=== PATIENT | male | born 1990 | race American Indian/Alaskan Native ===

== ENCOUNTER 2017-09-17 12:33 | Emergency (ER) | payer SELFPAY ==
[2017-09-17 13:12] VITALS: BP 128/77
[2017-09-17] MEDS ORDERED: ZITHROMAX PO ONE (16:20)
[2017-09-17] MEDS ORDERED: FLAGYL PO ONE (16:20)
[2017-09-17] MEDS ORDERED: XYLOCAINE 1% MPF 5 mL INFILTRATI ONE (16:20)
[2017-09-17] MEDS ORDERED: ROCEPHIN IM ONE (16:20)
--- NOTE | 2017-09-17 16:20 | Emergency Department Report ---
HPI - General Chief Complaint: Medical Clearance Time Seen by Provider: 09/17/17 15:27 - HPI HPI: 26-year-old male presents to ED stating that he found out recently that his girlfriend got tested and was positive for STD. Patient states that they have had intercourse since then he has not been treated. He denies dysuria, fever, penile discharge, penile pain, lesions, scrotum swelling or pain. ED Past Medical Hx - Past Medical History Previous Medical History?: No ED Review of Systems ROS: Stated complaint: TESTICLE PAIN Other details as noted in HPI Constitutional: denies: chills, fever Eyes: denies: eye pain, eye discharge, vision change ENT: denies: ear pain, throat pain Respiratory: denies: cough, shortness of breath, wheezing Cardiovascular: denies: chest pain, palpitations Endocrine: no symptoms reported Gastrointestinal: denies: abdominal pain, nausea, vomiting, diarrhea Genitourinary: denies: urgency, dysuria, frequency, hematuria, discharge, testicular pain, testicular mass Musculoskeletal: denies: back pain, joint swelling, arthralgia Skin: denies: rash, lesions Neurological: denies: headache, weakness, paresthesias Psychiatric: denies: anxiety, depression Hematological/Lymphatic: denies: easy bleeding, easy bruising Physical Exam - Physical Exam Vital Signs: Vital Signs 09/17/17 13:09 Temperature 98.5 F Pulse Rate 54 L Respiratory 18 Rate Blood Pressure 128/77 O2 Sat by Pulse 100 Oximetry Physical Exam: GENERAL: Alert and oriented x3, no apparent distress, Normal Gait, atraumatic. HEAD: Head is normocephalic and a-traumatic. LUNGS: Symetrical with respiration, No wheezing, no rales or crackles, CTAB. HEART: S1, S2 present, regular rate and rhythm without murmur, no rubs, no gallops. Non tender to palpation ABDOMEN: No organomegaly was noted,Positive bowel sounds, soft, and non- distended. . Nontender to palpation on all Quadrants, NO CVA tenderness. BACK: Full range of motion, no spinal tenderness, nontender to palpation. UROGENITAL: No scrotal mass, Scrotum non tender to palpation bilaterally, no hernia, no scars or penile discharge. SKIN: Warm and dry, No lesions, No ulceration or induration present. ED Course Vital Signs 09/17/17 13:09 Temperature 98.5 F Pulse Rate 54 L Respiratory 18 Rate Blood Pressure 128/77 O2 Sat by Pulse 100 Oximetry ED Medical Decision Making - Medical Decision Making 26-year-old male presents with STD exposure. ED course: urinalysis and gonorrhea and Chlamydia cultures obtained. Urinalysis negative Patient received 250 mg of Rocephin, azithromycin 1 g, Flagyl 2 g. Discussed with patient possible STD due to exposure. Discussed with patient findings and treatment Discussed prophylaxis treatment patient is to abstain from sex 7-10 days as treatment. Discussed patient partner knowledge and treatment. Discussed the follow-up with the health department for further STD testing. Patient's alert and oriented times 3. Vital signs are normal patient is in no acute discharge. Patient will be discharged home with instructions. Critical care attestation.: If time is entered above; I have spent that time in minutes in the direct care of this critically ill patient, excluding procedure time. ED Disposition Clinical Impression: Exposure to STD Disposition: DC-01 TO HOME OR SELFCARE Is pt being admited?: No Does the pt Need Aspirin: No Condition: Stable Instructions: Sexually Transmitted Diseases (ED), Safe Sex (ED) Additional Instructions: Make sure to follow up with the primary care physician as discussed. Take all your medications as you've been prescribed. If you have any worsening symptoms or develop new symptoms please return to ED immediately. Referrals: PRIMARY CARE, [Primary Care Provider] - 3-5 Days [facility] [Outside] - 3-5 Days [facility] [facility] [Outside] - 3-5 Days [facility] [Outside] - 3-5 Days Forms: Work/School Release Form(ED)
[2017-09-17 16:32] LABS: Bilirubin,Urine NEG (Negative); Blood,Urine NEG (Negative); Color,Urine Yellow (Yellow); Protein,Urine <15 mg/dL mg/dL (Negative); Urobilinogen,Urine < 2.0 mg/dL (<2.0); WBC,Urine < 1.0 /HPF (0.0-6.0)
== END 2017-09-17 16:53 | disposition home or self-care (01) ==
LOC: ED 12:33
DX: Z20.2 Contact with and (suspected) exposure to infections with a predominantly sexual mode of transmission (principal)
CPT/HCPCS: 81001; 87591; 96372; 99283; J0696

== ENCOUNTER 2021-12-21 12:11 | Emergency (ER) | payer SELFPAY ==
[2021-12-21] MEDS ORDERED: MORPHINE 4 MG/1 ML INJ IV ONE (12:40)
[2021-12-21] MEDS ORDERED: TETANUS,DIPH,PERTUSS(ACELL) VACCINE 0.5 ML SYRINGE IM ONE (12:40)
[2021-12-21] MEDS ORDERED: ONDANSETRON 4 MG/2 ML INJ IV ONE (12:40)
--- NOTE | 2021-12-21 12:57 | Emergency Department Report ---
<VANESSA DUMONT - Last Filed: 12/22/21 00:08> ED Animal Bite HPI - General Chief Complaint: Animal Bite Stated Complaint: SNAKE BITE Time Seen by Provider: 12/21/21 12:20 - Related Data Allergies Allergy/AdvReac Type Severity Reaction Status Date / Time No Known Allergies Allergy Verified 12/21/21 12:27 ED Disposition Clinical Impression: Snake bite Disposition: 01 HOME / SELF CARE / HOMELESS Condition: Stable Referrals: LINCOLN ORTEGA MD [Primary Care Provider] - 3-5 Days Forms: Work/School Release Form(ED) ED Medical Decision Making - Lab Data Result diagrams: 12/21/21 20:25 12/21/21 Unknown - Medical Decision Making pt was assessed at 11 pm swelling has increased slightly , spoke with poison control, asked to repat blood work and wait to go to elbow , pt started getting assaultive and cussing and racist asking for anti venom then started going off on me and staff with racist and threatening phrases he was escorted out with security pt cooninued to be aggressive and assaultive and called me ( niger ) and I will fuck you if i see u police has been called and escorted out of the premises <MARBELLA MENDOZA - Last Filed: 12/23/21 21:42> ED Animal Bite HPI - General Source: patient Mode of arrival: Ambulatory Limitations: No Limitations - History of Present Illness Initial Comments: 31-year-old male with a past medical history of asthma presents to the hospital after sustaining a snake back to his left thumb approximately 12 PM. Patient killed the snake after bite, looked it up on the Internet, and states it is likely a baby copperhead snake. Patient came to the ER immediately after bite. He is right-hand dominant. He complains of pain to his left thumb the area of bite with numbness extending proximally towards the wrist. Patient denies shortness of breath or other symptoms at this time. Pain is rated 6/10 in intensity and worse with movement and palpation. Tetanus status not up-to-date ED Review of Systems ROS: Stated complaint: SNAKE BITE Other details as noted in HPI Comment: All other systems reviewed and negative ED Physical Exam - General Limitations: No Limitations - Other Other exam information: General: No acute distress Head: Atraumatic Eyes: normal appearance ENT: Moist mucous membranes Neck: Normal appearance, no midline tenderness Chest: Clear to auscultation bilaterally CV: Regular rate and rhythm Abdomen: Soft, normal bowel sounds, nontender, nondistended, no rebound or guarding Back: Normal inspection Extremity: Mild swelling noted to left thumb and adjacent posterior hand extending towards the wrist. Patient has 2 puncture wounds noted around the thumb PIP and and just distal to the MTP joint. There is a measurable area of s welling and numbness is 7 cm when measured from the distal puncture wound extending proximately towards the wrist. This was outlined with a skin marker. At this time swelling and numbness has not extended past the wrist joint. Patient is able to flex and extend thumb although somewhat limited secondary to swelling. Distal sensation intact. Neuro: Alert O x 3, no facial asymmetry, speech clear, no gross motor sensory deficit Psych: Appropriate behavior Skin: No rash ED Course Vital Signs 12/21/21 12/21/21 12/21/21 12:26 12:36 12:42 Temperature 98.6 F Pulse Rate 68 71 Respiratory 12 Rate Blood Pressure Blood Pressure 135/90 [Left] O2 Sat by Pulse 97 100 Oximetry 12/21/21 12/21/21 12/21/21 13:00 13:30 14:16 Temperature Pulse Rate 63 57 L 62 Respiratory 10 L 13 12 Rate Blood Pressure 121/79 133/83 118/76 Blood Pressure [Left] O2 Sat by Pulse 100 100 99 Oximetry 12/21/21 12/21/21 12/21/21 15:00 15:05 16:45 Temperature Pulse Rate 63 71 Respiratory 10 L 12 Rate Blood Pressure 131/77 131/81 Blood Pressure [Left] O2 Sat by Pulse 100 100 100 Oximetry 12/21/21 12/21/21 12/21/21 17:01 18:31 18:45 Temperature Pulse Rate 70 66 68 Respiratory 13 16 10 L Rate Blood Pressure 126/85 116/75 116/75 Blood Pressure [Left] O2 Sat by Pulse 99 100 Oximetry 12/21/21 12/21/21 12/21/21 19:01 19:15 19:31 Temperature Pulse Rate 72 63 64 Respiratory 11 L 11 L 11 L Rate Blood Pressure 116/75 116/75 116/75 Blood Pressure [Left] O2 Sat by Pulse 100 100 99 Oximetry 12/21/21 12/21/21 12/21/21 19:45 20:01 20:15 Temperature Pulse Rate 56 L 58 L 60 Respiratory 13 10 L 15 Rate Blood Pressure 116/75 120/77 120/77 Blood Pressure [Left] O2 Sat by Pulse 100 100 97 Oximetry 12/21/21 12/21/21 12/21/21 20:31 20:45 21:00 Temperature Pulse Rate 65 70 72 Respiratory 9 L 18 9 L Rate Blood Pressure 120/77 120/77 127/87 Blood Pressure [Left] O2 Sat by Pulse 99 100 99 Oximetry 12/21/21 12/21/21 12/21/21 21:21 21:31 21:45 Temperature Pulse Rate 72 63 Respiratory 13 12 Rate Blood Pressure 127/87 127/87 127/87 Blood Pressure [Left] O2 Sat by Pulse 98 100 100 Oximetry 12/21/21 12/21/21 12/21/21 22:01 22:15 22:31 Temperature Pulse Rate 77 75 64 Respiratory 12 16 14 Rate Blood Pressure 127/87 127/87 127/87 Blood Pressure [Left] O2 Sat by Pulse 100 98 97 Oximetry 12/21/21 12/21/21 22:45 23:01 Temperature Pulse Rate 78 72 Respiratory 11 L 17 Rate Blood Pressure 127/87 131/90 Blood Pressure [Left] O2 Sat by Pulse 97 97 Oximetry - Reevaluation(s) Reevaluation #1: 12/21/21 15:57 Patient now has more diffuse swelling to hands with extension of swollen proximal to the wrist/distal forearm. Patient is still able to flex and extend fingers including thumb. we will continue to monitor. 12/21/21 19:03 currently 22 cm le - Consultations Consultation #1: 12/21/21 12: 43 Case discussed with [facility]. She states that copperhead's are not typically associated with coagulopathy which will be an indication for antivenom. Recommends that patient is observed for least 8 hours and observed for extension of area of swelling. Indications for antivenom include unstable vital signs, rapid progression of swelling, and swelling past to major joints which would be the wrist and elbow in this case. Recommend call back for further instruction if swelling extends towards the mid forearm. Recommend to keep limb elevated at the level or above the heart. Does not recommend ice or tourniquet. Recommend baseline labs which have been ordered 12/21/21 19:05 case we discussed with [facility] with poison recommend to watch for 12 hours (not 8 hours). if it pass mid forearm then they will consider the antidote. Does not recommend antidote at this time. Critical Care Time: No Critical care attestation.: If time is entered above; I have spent that time in minutes in the direct care of this critically ill patient, excluding procedure time. ED Disposition Is pt being admited?: No ED Medical Decision Making - Lab Data Result diagrams: 12/21/21 20:25 12/21/21 Unknown Lab Results 12/21/21 12/21/21 12/21/21 Range/Units 10:45 10:45 20:25 WBC 5.1 7.1 (4.5-11.0) K/mm3 RBC 4.36 4.05 (3.65-5.03) M/mm3 Hgb 15.0 13.8 (11.8-15.2) gm/dl Hct 44.6 41.3 (35.5-45.6) % MCV 102 H 102 H (84-94) fl MCH 34 H 34 H (28-32) pg MCHC 34 34 (32-34) % RDW 13.0 L 13.2 (13.2-15.2) % Plt Count 241 217 (140-440) K/mm3 Lymph % (Auto) 33.7 (13.4-35.0) % [place] % (Auto) 7.9 H (0.0-7.3) % Eos % (Auto) 2.0 (0.0-4.3) % Baso % (Auto) 0.5 (0.0-1.8) % Lymph # (Auto) 2.4 (1.2-5.4) K/mm3 [place] # (Auto) 0.6 (0.0-0.8) K/mm3 Eos # (Auto) 0.1 (0.0-0.4) K/mm3 Baso # (Auto) 0.0 (0.0-0.1) K/mm3 Add Manual Diff Complete Total Counted 100 Seg Neutrophils % Windows Security Engineer 55.9 Seg Neuts % (Manual) 39.0 L (40.0-70.0) % Band Neutrophils % 0 % Lymphocytes % (Manual) 49.0 H (13.4-35.0) % Reactive Lymphs % (Man) 0 % Monocytes % (Manual) 9.0 H (0.0-7.3) % Eosinophils % (Manual) 3.0 (0.0-4.3) % Basophils % (Manual) 0 (0.0-1.8) % Metamyelocytes % 0 % Myelocytes % 0 % Promyelocytes % 0 % Blast Cells % 0 % Nucleated RBC % Not Reportable Seg Neutrophils # 3.9 (1.8-7.7) K/mm3 Seg Neutrophils # Man 2.0 (1.8-7.7) K/mm3 Band Neutrophils # 0.0 K/mm3 Lymphocytes # (Manual) 2.5 (1.2-5.4) K/mm3 Abs React Lymphs (Man) 0.0 K/mm3 Monocytes # (Manual) 0.5 (0.0-0.8) K/mm3 Eosinophils # (Manual) 0.2 (0.0-0.4) K/mm3 Basophils # (Manual) 0.0 (0.0-0.1) K/mm3 Metamyelocytes # 0.0 K/mm3 Myelocytes # 0.0 K/mm3 Promyelocytes # 0.0 K/mm3 Blast Cells # 0.0 K/mm3 WBC Morphology Not Reportable Hypersegmented Neuts Not Reportable Hyposegmented Neuts Not Reportable Hypogranular Neuts Not Reportable Smudge Cells Few Toxic Granulation Not Reportable Toxic Vacuolation Not Reportable Dohle Bodies Not Reportable Pelger-Huet Anomaly Not Reportable Alverto Rods Not Reportable Platelet Estimate Consistent w auto Clumped Platelets Not Reportable Plt Clumps, EDTA Not Reportable Large Platelets Not Reportable Giant Platelets Not Reportable Platelet Satelliting Not Reportable Plt Morphology Comment Not Reportable RBC Morphology Not Reportable Dimorphic RBCs Not Reportable Polychromasia Not Reportable Hypochromasia Not Reportable Poikilocytosis Not Reportable Anisocytosis 1+ Microcytosis Not Reportable Macrocytosis Not Reportable Spherocytes Not Reportable Pappenheimer Bodies Not Reportable Sickle Cells Not Reportable Target Cells Not Reportable Tear Drop Cells Not Reportable Ovalocytes Not Reportable Helmet Cells Not Reportable Rain-[place]acy[place] Bodies Not Reportable Hobson Rings Not Reportable [place] Cells Not Reportable Bite Cells Not Reportable Crenated Cell Not Reportable Elliptocytes Not Reportable Acanthocytes (Spur) Not Reportable Rouleaux Not Reportable Hemoglobin C Crystals Not Reportable Schistocytes Not Reportable Malaria parasites Not Reportable [place] Bodies Not Reportable Hem Pathologist Commnt No PT 13.3 (12.2-14.9) Sec. INR 0.89 (0.87-1.13) APTT 33.7 (24.2-36.6) Sec. Fibrinogen 293 (211-480) mg/dl Sodium (137-145) mmol/L Potassium (3.6-5.0) mmol/L Chloride (98-107) mmol/L Carbon Dioxide (22-30) mmol/L Anion Gap mmol/L BUN (9-20) mg/dL Creatinine (0.8-1.3) mg/dL Estimated GFR ml/min BUN/Creatinine Ratio % Glucose (75-100) mg/dL Calcium (8.4-10.2) mg/dL Total Bilirubin (0.1-1.2) mg/dL AST (5-40) units/L ALT (7-56) units/L Alkaline Phosphatase (35-129) units/L Total Creatine Kinase (55-170) units/L Total Protein (6.3-8.2) g/dL Albumin (3.9-5) g/dL Albumin/Globulin Ratio % // Range/Units Unknown WBC (4.5-11.0) K/mm3 RBC (3.65-5.03) M/mm3 Hgb (11.8-15.2) gm/dl Hct (35.5-45.6) % MCV (84-94) fl MCH (28-32) pg MCHC (32-34) % RDW (13.2-15.2) % Plt Count (140-440) K/mm3 Lymph % (Auto) (13.4-35.0) % [place] % (Auto) (0.0-7.3) % Eos % (Auto) (0.0-4.3) % Baso % (Auto) (0.0-1.8) % Lymph # (Auto) (1.2-5.4) K/mm3 [place] # (Auto) (0.0-0.8) K/mm3 Eos # (Auto) (0.0-0.4) K/mm3 Baso # (Auto) (0.0-0.1) K/mm3 Add Manual Diff Total Counted Seg Neutrophils % Seg Neuts % (Manual) (40.0-70.0) % Band Neutrophils % % Lymphocytes % (Manual) (13.4-35.0) % Reactive Lymphs % (Man) % Monocytes % (Manual) (0.0-7.3) % Eosinophils % (Manual) (0.0-4.3) % Basophils % (Manual) (0.0-1.8) % Metamyelocytes % % Myelocytes % % Promyelocytes % % Blast Cells % % Nucleated RBC % Seg Neutrophils # (1.8-7.7) K/mm3 Seg Neutrophils # Man (1.8-7.7) K/mm3 Band Neutrophils # K/mm3 Lymphocytes # (Manual) (1.2-5.4) K/mm3 Abs React Lymphs (Man) K/mm3 Monocytes # (Manual) (0.0-0.8) K/mm3 Eosinophils # (Manual) (0.0-0.4) K/mm3 Basophils # (Manual) (0.0-0.1) K/mm3 Metamyelocytes # K/mm3 Myelocytes # K/mm3 Promyelocytes # K/mm3 Blast Cells # K/mm3 WBC Morphology Hypersegmented Neuts Hyposegmented Neuts Hypogranular Neuts Smudge Cells Toxic Granulation Toxic Vacuolation Dohle Bodies Pelger-Huet Anomaly Alverto Rods Platelet Estimate Clumped Platelets Plt Clumps, EDTA Large Platelets Giant Platelets Platelet Satelliting Plt Morphology Comment RBC Morphology Dimorphic RBCs Polychromasia Hypochromasia Poikilocytosis Anisocytosis Microcytosis Macrocytosis Spherocytes Pappenheimer Bodies Sickle Cells Target Cells Tear Drop Cells Ovalocytes Helmet Cells Rain-[place]acy[place] Bodies Hobson Rings [place] Cells Bite Cells Crenated Cell Elliptocytes Acanthocytes (Spur) Rouleaux Hemoglobin C Crystals Schistocytes Malaria parasites [place] Bodies Hem Pathologist Commnt PT (12.2-14.9) Sec. INR (0.87-1.13) APTT (24.2-36.6) Sec. Fibrinogen (211-480) mg/dl Sodium 141 (137-145) mmol/L Potassium 4.3 (3.6-5.0) mmol/L Chloride 103.1 (98-107) mmol/L Carbon Dioxide 29 (22-30) mmol/L Anion Gap 13 mmol/L BUN 12 (9-20) mg/dL Creatinine 1.5 H (0.8-1.3) mg/dL Estimated GFR > 60 ml/min BUN/Creatinine Ratio 8 % Glucose 73 L (75-100) mg/dL Calcium 10.5 H (8.4-10.2) mg/dL Total Bilirubin 0.60 (0.1-1.2) mg/dL AST 18 (5-40) units/L ALT 13 (7-56) units/L Alkaline Phosphatase 58 (35-129) units/L Total Creatine Kinase 305 H (55-170) units/L Total Protein 7.6 (6.3-8.2) g/dL Albumin 5.0 (3.9-5) g/dL Albumin/Globulin Ratio 1.9 % - Medical Decision Making 31-year-old male status post snakebite. Patient in the ED receiving vital sign monitoring, laboratory evaluation, reevaluation of swelling patient will need at least 12 hours observation to determine if intervention is indicated. At time of signout repeat labs are pending. Case signed out to Dr. Dumont who examined patient at the bedside with myself at time of signout. He will follow-up and dispo patient.
[2021-12-21 13:26] LABS: Hematocrit 44.6 % (35.5-45.6); Mean Corpuscular HGB Conc 34 % (32-34); Mean Corpuscular Volume 102 fl (84-94); Platelet Count 241 K/mm3 (140-440); Red Blood Count 4.36 M/mm3 (3.65-5.03)
[2021-12-21] MEDS ORDERED: fentaNYL 100 MCG/2 ML INJ IV ONE ×2 (13:26→15:58)
[2021-12-21 13:35] LABS: INR 0.89 (0.87-1.13)
[2021-12-21 13:36] LABS: Partial Thromboplastin Time 33.7 Sec. (24.2-36.6)
[2021-12-21 13:57] LABS: Alanine Aminotransferase 13 units/L (7-56); BUN/Creatinine Ratio 8; Blood Urea Nitrogen 12 mg/dL (9-20); Calcium 10.5 mg/dL (8.4-10.2); Hemolysis Index 15
[2021-12-21 13:59] LABS: Basophils % (Manual) 0 % (0.0-1.8); Total Cells Counted 100
[2021-12-21 14:00] LABS: Anisocytosis 1+; Platelet Estimate Consistent w Auto; Smudge Cells Few
[2021-12-21] MEDS ORDERED: SODIUM CHLORIDE 0.9% 1000 ML 1,000 ML IV ONE (14:30)
[2021-12-21] MEDS ORDERED: HYDROmorphone 1 MG/1 ML INJ IV ONE ×2 (18:54→21:53)
[2021-12-21 21:00] LABS: Basophils % (Auto) 0.5 % (0.0-1.8); Eosinophils # (Auto) 0.1 K/mm3 (0.0-0.4); Hematocrit 41.3 % (35.5-45.6); Hemoglobin 13.8 gm/dl (11.8-15.2); Lymphocytes # (Auto) 2.4 K/mm3 (1.2-5.4); Lymphocytes % (Auto) 33.7 % (13.4-35.0); Mean Corpuscular HGB Conc 34 % (32-34); Mean Corpuscular Volume 102 fl (84-94); Monocytes # (Auto) 0.6 K/mm3 (0.0-0.8); Monocytes % (Auto) 7.9 % (0.0-7.3); Platelet Count 217 K/mm3 (140-440); Red Blood Count 4.05 M/mm3 (3.65-5.03); Red Cell Distribution Width 13.2 % (13.2-15.2)
[2021-12-21 21:08] LABS: INR 0.96 (0.87-1.13)
[2021-12-21 21:11] LABS: BUN/Creatinine Ratio 9; Blood Urea Nitrogen 10 mg/dL (9-20); Calcium 9.1 mg/dL (8.4-10.2); Hemolysis Index 5
[2021-12-21 23:16] VITALS: BP 131/90
== END 2021-12-22 00:30 | disposition home or self-care (01) ==
LOC: ED 12:11
DX: T63.091A Toxic effect of venom of other snake, accidental (unintentional), initial encounter (principal); Y92.89 Other specified places as the place of occurrence of the external cause
CPT/HCPCS: 36415; 80048; 80053; 82550; 85007; 85025; 85384; 85610; 85730; 90471; 90715; 96361; 96374; 96375; 96376; 99283; J1170; J2270; J2405; J3010; J7030